=== PATIENT | female | born 1975 | race Caucasian/White ===

== ENCOUNTER → 2019-12-31 16:21 | Outpatient (BNVA) | payer BC, SELFPAY | PROVIDERS: Family Provider Family Medicine; PCP Family Medicine; Visit Provider Nurse Practitioner Family | DX: M25.511 Pain in right shoulder (principal) | CPT/HCPCS: 73030 ==

== ENCOUNTER 2020-01-28 13:10 | Outpatient (RCR) | payer BC, SELFPAY | END 2020-02-18 23:59 | disposition home or self-care (01) | LOC: MPT 13:10 | PROVIDERS: Family Provider Family Medicine; PCP Family Medicine; Referring Provider Nurse Practitioner Family; Visit Provider Nurse Practitioner Family | DX: M25.511 Pain in right shoulder (principal) | CPT/HCPCS: 97110; 97161 ==

== ENCOUNTER → 2024-08-14 10:49 | Outpatient (BNVA) | payer SELFPAY | PROVIDERS: Family Provider Family Medicine; Visit Provider Nurse Practitioner | DX: I10 Essential (primary) hypertension (principal) | CPT/HCPCS: 80053; 80061; 84443; 85025 ==

== ENCOUNTER → 2025-03-20 10:32 | Outpatient (BNVA) | payer MEDICAID, SELFPAY | PROVIDERS: Family Provider Nurse Practitioner; PCP Nurse Practitioner; Visit Provider Nurse Practitioner | DX: I10 Essential (primary) hypertension (principal); N63.20 Unspecified lump in the left breast, unspecified quadrant | CPT/HCPCS: 80053; 80061; 84443; 85025 ==

== ENCOUNTER 2025-04-03 10:09 | Outpatient (CLI) | payer MEDICAID, SELFPAY ==
--- NOTE | 2025-04-03 10:30 | MM_ITS ---
WS: [id number] BILATERAL 3D TOMOSYNTHESIS DIGITAL DIAGNOSTIC MAMMOGRAPHY WITH CAD CLINICAL INFORMATION: N63.20 - Unspecified lump in the left breast, unspecified... HISTORY: LEFT breast lump COMPARISON: 2022 outside studies TECHNIQUE: Bilateral CC, MLO, and ML views. FINDINGS: The breasts are composed of heterogeneous fibroglandular density, which can limit the detection of small underlying mass lesions. Incidental punctate calcifications. Palpable marker LEFT breast. Dense underlying parenchymal tissue. Ultrasound is pending. ULTRASOUND BREAST LEFT TECHNIQUE: Ultrasound left breast focused area of concern. CLINICAL INFORMATION: N63.20 - Unspecified lump in the left breast, unspecified... FINDINGS: Ultrasound LEFT breast at the 3 o'clock position 3 cm from the nipple in the area of concern. Dense underlying parenchymal tissue. No cystic or solid lesions. No suspicious lesions to target for biopsy. MM/MM diag BI tomosynthesis [id number] IMPRESSION: DENSITY: The breasts are heterogeneously dense, which may obscure small masses. BI-RADS: 2 - Benign FOLLOW UP: 1 Year Follow-up Recommend return to annual screening mammography.
--- NOTE | 2025-04-03 11:00 | US_ITS ---
WS: [id number] BILATERAL 3D TOMOSYNTHESIS DIGITAL DIAGNOSTIC MAMMOGRAPHY WITH CAD CLINICAL INFORMATION: N63.20 - Unspecified lump in the left breast, unspecified... HISTORY: LEFT breast lump COMPARISON: 2022 outside studies TECHNIQUE: Bilateral CC, MLO, and ML views. FINDINGS: The breasts are composed of heterogeneous fibroglandular density, which can limit the detection of small underlying mass lesions. Incidental punctate calcifications. Palpable marker LEFT breast. Dense underlying parenchymal tissue. Ultrasound is pending. ULTRASOUND BREAST LEFT TECHNIQUE: Ultrasound left breast focused area of concern. CLINICAL INFORMATION: N63.20 - Unspecified lump in the left breast, unspecified... FINDINGS: Ultrasound LEFT breast at the 3 o'clock position 3 cm from the nipple in the area of concern. Dense underlying parenchymal tissue. No cystic or solid lesions. No suspicious lesions to target for biopsy. US/US breast LT limited* [id number] IMPRESSION: DENSITY: The breasts are heterogeneously dense, which may obscure small masses. BI-RADS: 2 - Benign FOLLOW UP: 1 Year Follow-up Recommend return to annual screening mammography.
== END 2025-04-03 10:10 | disposition home or self-care (01) ==
PROVIDERS: Family Provider Nurse Practitioner; PCP Nurse Practitioner; Visit Provider Nurse Practitioner
DX: N63.25 Unspecified lump in the left breast, overlapping quadrants (principal); R92.333 Mammographic heterogeneous density, bilateral breasts; R92.1 Mammographic calcification found on diagnostic imaging of breast; R92.342 Mammographic extreme density, left breast
CPT/HCPCS: 76642; 77062; G0279

== ENCOUNTER → 2025-07-02 09:55 | Outpatient (BNVA) | payer MEDICAID, SELFPAY | PROVIDERS: Family Provider Nurse Practitioner; PCP Nurse Practitioner; Visit Provider Nurse Practitioner | DX: E66.9 Obesity, unspecified (principal) | CPT/HCPCS: 84443 ==

== ENCOUNTER → 2025-07-08 11:01 | Outpatient (BNVA) | payer MEDICAID, SELFPAY | PROVIDERS: Family Provider Nurse Practitioner; PCP Nurse Practitioner; Visit Provider Family Medicine | DX: S49.92XA Unspecified injury of left shoulder and upper arm, initial encounter (principal); X58.XXXA Exposure to other specified factors, initial encounter | CPT/HCPCS: 73030 ==

== ENCOUNTER → 2025-07-17 09:43 | Outpatient (BNVA) | payer MEDICAID, SELFPAY | PROVIDERS: Family Provider Nurse Practitioner; PCP Nurse Practitioner; Visit Provider Nurse Practitioner | DX: Z12.4 Encounter for screening for malignant neoplasm of cervix (principal) | CPT/HCPCS: 88175 ==